=== PATIENT | female | born 1955 ===

== ENCOUNTER 2017-09-20 09:15 | Emergency (ER) | payer MEDICAID ==
[2017-09-20] MEDS ORDERED: Sodium Chloride 0.9% 1,000 ML IV ONE (10:25)
[2017-09-20 10:31] LABS: BASO % 0.2 % (0.0-2.0); HEMOGLOBIN 15.4 g/dL (11.0-16.0); LYMPH # 0.3 K/uL (1.0-4.3); LYMPH % 3.5 % (20.0-40.0); MEAN CELL VOLUME 84.7 fL (81.0-99.0); MEAN CORPUSCULAR HEMOGLOBIN 28.6 pg (27.0-31.0); MEAN CORPUSCULAR HGB CONC 33.8 g/dL (33.0-37.0); MEAN PLATELET VOLUME 9.2 fL (7.2-11.7); MONO # 0.2 K/uL (0.0-0.8); MONO % 1.8 % (0.0-10.0); NEUT # 9.4 K/uL (1.8-7.0); NEUT % 94.5 % (50.0-75.0); NRBC % 0.1 % (0.0-2.0); PLATELET COUNT 211 K/uL (130-400); RBC 5.39 Mil/uL (3.80-5.20); RED CELL DISTRIBUTION WIDTH 13.4 % (11.5-14.5); WHITE BLOOD COUNT 9.9 K/uL (4.8-10.8)
[2017-09-20] MEDS ORDERED: Sodium Chloride 0.9% 1,000 ML ONE (10:33)
--- NOTE | 2017-09-20 10:33 | C.PDOC ---
History Of Present Illness 61-year-old female presents to the emergency department with complaints of epigastric abdominal pain since yesterday, associated with nausea. Patient states she has had these symptoms in the past but not as severe as today. She had endoscopy at another hospital ([facility]) which showed hiatal hernia and mild gastritis. Patient denies vomiting/diarrhea, fevers/chills, chest pain, SOB, dysuria, or any other associated symptoms. Time Seen by Provider: 09/20/17 09:21 Chief Complaint (Nursing): Abdominal Pain History Per: Patient History/Exam Limitations: no limitations Onset/Duration Of Symptoms: Days Current Symptoms Are (Timing): Still Present Severity: Moderate Past Medical History Reviewed: Historical Data, Nursing Documentation, Vital Signs Vital Signs: Last Vital Signs Temp 98.7 F 09/20/17 12:22 Pulse 75 09/20/17 12:22 Resp 16 09/20/17 12:22 BP 145/57 L 09/20/17 12:22 Pulse Ox 98 09/20/17 13:18 - Medical History PMH: No Chronic Diseases, Gastritis Other PMH: hiatal hernia Family History: States: No Known Family Hx - Social History Hx Alcohol Use: Yes Hx Substance Use: No - Immunization History Hx Tetanus Toxoid Vaccination: No Hx Influenza Vaccination: No Hx Pneumococcal Vaccination: No Review Of Systems Constitutional: Negative for: Fever, Chills Cardiovascular: Negative for: Chest Pain, Palpitations Respiratory: Negative for: Shortness of Breath Gastrointestinal: Positive for: Nausea, Abdominal Pain. Negative for: Vomiting , Diarrhea Genitourinary: Negative for: Dysuria, Hematuria, Vaginal Discharge, Vaginal Bleeding Musculoskeletal: Negative for: Back Pain Neurological: Negative for: Weakness Physical Exam - Physical Exam Appears: Well, Non-toxic, In Acute Distress (in mild pain ) Skin: Normal Color, Warm, Dry, No Rash Head: Normacephalic Eye(s): bilateral: Normal Inspection Oral Mucosa: Moist Cardiovascular: Rhythm Regular Respiratory: Normal Breath Sounds, No Rales, No Rhonchi, No Wheezing Gastrointestinal/Abdominal: Bowel Sounds, Soft, Tenderness (epigastric TTP, (-) Stokes's, (-) McBurney's ), No Guarding, No Rebound Back: No CVA Tenderness Extremity: Normal ROM, No Deformity, No Swelling Neurological/Psych: Oriented x3 ED Course And Treatment - Laboratory Results Result Diagrams: 09/20/17 10:23 09/20/17 11:04 ECG: Interpreted By Me, Viewed By Me (NSR 70 bpm, left axis deviation, no acute ST/T wave changes) ECG Interpretation: No Acute Changes O2 Sat by Pulse Oximetry: 98 (RA) Pulse Ox Interpretation: Normal Progress Note: Blood work, EKG, UA ordered and reviewed. Patient given IVS NS bolus and IV protonix. Reevaluation Time: 12:00 Reassessment Condition: Improved (Patient reassessed, is resrting comfortably and states she feels better. On exam, abdomen is soft and nontender. Rx for Protonic given, patient instructed to follow up with GI within 1 week. She understands she should return to ED if symptoms worsen.) Disposition Counseled Patient/Family Regarding: Studies Performed, Diagnosis, Need For Followup, Rx Given - Disposition Referrals: Abhi Nunez MD [Staff Provider] - Ibrahima Peterson [Staff Provider] - Disposition: HOME/ ROUTINE Disposition Time: 12:00 Condition: STABLE Additional Instructions: FOLLOW UP WITH HR REPRESENTATIVE WITHIN 1 WEEK USE MEDICATION DAILY AVOID SPICY/ACIDIC FOODS RETURN TO ER IF SYMPTOMS WORSEN Prescriptions: Pantoprazole [Protonix EC Tab] 20 mg PO DAILY #30 ect Instructions: Acute Abdomen (Belly Pain), Adult (DC) Forms: [facility] (Syriac), General Discharge Instructions Print Language: CAMBODIAN - Clinical Impression Clinical Impression: Epigastric abdominal pain - Scribe Statement The provider has reviewed the documentation as recorded by the Scribe (Wil Caballero) All medical record entries made by the Scribe were at my direction and personally dictated by me. I have reviewed the chart and agree that the record accurately reflects my personal performance of the history, physical exam, medical decision making, and the department course for this patient. I have also personally directed, reviewed, and agree with the discharge instructions and disposition.
[2017-09-20 10:51] LABS: LYMPHOCYTE 1 % (20-40); MONOCYTE 2 % (0-10); NEUTROPHIL 97 % (50-75); PLATELET ESTIMATE NORMAL (NORMAL); TOTAL CELLS COUNTED 100
[2017-09-20 11:13] LABS: URINE BILIRUBIN NEGATIVE (NEGATIVE); URINE BLOOD NEGATIVE (NEGATIVE); URINE CLARITY Clear (Clear); URINE COLOR Yellow (YELLOW); URINE GLUCOSE (UA) 1+ mg/dL (Normal); URINE LEUKOCYTE ESTERASE 1+ Leu/uL (Negative); URINE PROTEIN 1+ mg/dL (NEGATIVE); URINE UROBILINOGEN NORMAL mg/dL (0.2-1.0)
[2017-09-20 11:28] LABS: SQUAMOUS EPITHIAL 1 /hpf (0-5); URINE BACTERIA RARE (<OCC)
[2017-09-20 11:35] LABS: ALB/GLOB RATIO 1.5 (1.0-2.1); ALBUMIN 4.2 g/dL (3.5-5.0); ALT/SGPT 51 U/L (9-52); AST/SGOT 29 U/L (14-36); BLOOD UREA NITROGEN 9 mg/dL (7-17); CALCIUM 9.2 mg/dl (8.6-10.4); GFR AFRICAN-AMERICAN > 60; GFR NON-AFRICAN AMERICAN > 60; LIPASE 47 U/L (23-300)
[2017-09-20 12:24] VITALS: BP 145/57; PULSE 75; RESP 16; TEMP 98.7
[2017-09-20 13:03] VITALS: O2SAT 98
--- NOTE | 2017-09-20 20:45 | CARD ---
APPROVED REPORT Date of service: 09/20/2017 EKG Measurement Heart [id number] <Conclusion> Normal sinus rhythm Left anterior fascicular block Abnormal ECG
== END 2017-09-20 12:23 | disposition home or self-care (01) ==
LOC: C.ER 09:15
DX: R10.13 Epigastric pain (principal)
CPT/HCPCS: 80053; 81001; 83690; 85025; 93005; 96361; 96374; 99285; C9113; J7030